=== PATIENT | female | born 1940 | race Caucasian/White ===

== ENCOUNTER → 2021-12-01 | Outpatient (CLI) | payer MEDICARE, OTHER ==
--- NOTE | 2021-12-01 10:46 | Diagnostic Imaging Report ---
PROCEDURE: CT sinuses without contrast TECHNIQUE: Multiple contiguous axial images were obtained through the sinuses without the use of intravenous contrast. Coronal and sagittal reformations were then performed. Auto Exposure Controls were utilized during the CT exam to meet ALARA standards for radiation dose reduction. INDICATION: Chronic sinusitis There is moderate rightward deviation of the nasal septum with large rightwards septal spur. 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 No paranasal sinus air-fluid levels identified and there is no evidence of significant membranous thickening. Visualized mastoid air cells and middle ear cavities are clear. There is mild atherosclerotic calcifications within distal internal carotid and vertebral arteries. Orbits are unremarkable without evidence of retro-orbital inflammation or fluid collection. IMPRESSION: Rightward deviation and spurring of the nasal septum with left conchal bullosa. There is no evidence of sinusitis. Dictated by: Dictated on workstation # [id number]
== END ==
LOC: RAD FS 08:10
PROVIDERS: ATTEND Otolaryngology Otolaryngology/Facial Plastic Surgery
DX: J32.9 Chronic sinusitis, unspecified (principal); J34.89 Other specified disorders of nose and nasal sinuses
CPT/HCPCS: 70486

== ENCOUNTER 2022-09-29 19:47 | Emergency (ER) | payer MEDICARE, OTHER ==
[~2022-09-29] VITALS: Ht 149.8 cm; Wt 61.6 kg
[2022-09-29] MEDS ORDERED: KETOROLAC 15 MG/ML VIAL IVP STA (19:58)
[2022-09-29] MEDS ORDERED: hydrALAZINE (APESOLINE) 20 MG/ML VIAL IV STA (19:58)
--- NOTE | 2022-09-29 20:19 | ED General ---
General Stated Complaint: L ARM,L SIDE OF FACE AND L LEG NUMBNESS/PAIN Source of Information: Patient History of Present Illness Date Seen by Provider: Sep 29, 2022 Time Seen by Provider: 19:49 Initial Comments 82-year-old female presenting with complaints of pain to the left posterior calf since yesterday. Today she was noticing that her left hand and face were tingling. She decided to come to the emergency department due to the combination of the calf pain and her face and hand tingling. On arrival to the ED she states that the tingling to her face and hand are rapidly improving and almost gone. She is still concerned about the pain to the back of her left calf. She denies any injury, fall, heavy lifting or straining. She does have a history of high blood pressure and on arrival to the ED was 208 for her systolic pressure. She denies having a headache, change in vision, nausea, vomiting, weakness in her arms or legs, difficulty swallowing. Timing/Duration: 1 Day Severity: Mild Modifying Factors: worse with Movement (Walking makes the leg hurt more) Associated Systoms: No Chest Pain, No Cough, No Diaphoresis, No Fever/Chills, No Headaches, No Loss of Appetite, No Malaise, No Nausea/Vomiting, No Rash, No Seizure, No Shortness of Air, No Syncope, No Weakness Allergies and Home Medications Allergies Coded Allergies: Macrolide Antibiotics (Verified Allergy, Unknown, 09/29/22) Patient Home Medication List Home Medication List Reviewed: Yes Rivaroxaban (Xarelto) 15 Mg Tablet, 15 MG PO DAILY Prescribed by: ALEX DUMONT on 09/29/229 Review of Systems Review of Systems Constitutional: No chills EENTM: see HPI; No vision loss, No epistaxis, No nose congestion Respiratory: No cough, No short of breath Cardiovascular: No chest pain Gastrointestinal: No nausea, No vomiting Genitourinary: No dysuria Musculoskeletal: muscle pain (left calf since yesterday) Skin: No rash Psychiatric/Neurological: Denies Headache; Tingling (left face and hand) Physical Exam Vital Signs Vital Signs - First Documented 09/29/22 19:53 Temp 36.5 Pulse 96 Resp 19 B/P (MAP) 208/79 (122) Pulse Ox 98 O2 Delivery Room Air Capillary Refill : Height, Weight, BMI Height: '" Weight: lbs. oz. kg; BMI Method: General Appearance: No Apparent Distress, WD/WN Eyes: Bilateral Eye PERRL, Bilateral Eye EOMI HEENT: Normal ENT Inspection, Pharynx Normal, Moist Mucous Membranes Neck: Full Range of Motion, Normal Inspection, Non Tender, Supple Respiratory: Chest Non Tender, Lungs Clear, Normal Breath Sounds, No Accessory Muscle Use, No Respiratory Distress Cardiovascular: Regular Rate, Rhythm, Normal Peripheral Pulses Gastrointestinal: Normal Bowel Sounds, No Pulsatile Mass, Non Tender, Soft Rectal: Deferred Back: No CVA Tenderness Extremity: Normal Capillary Refill, Normal Range of Motion, No Pedal Edema, Calf Tenderness (left side) Neurologic/Psychiatric: Alert, Oriented x3, No Motor/Sensory Deficits, Normal Mood/Affect, animal pathologist II-XII Norm as Tested Skin: Normal Color, Warm/Dry Progress/Results/Core Measures Suspected Sepsis SIRS Temperature: Pulse: Respiratory Rate: Laboratory Tests 09/29/22 19:55: White Blood Count 11.1H Blood Pressure / Mean: Laboratory Tests 09/29/22 19:55: Creatinine 0.68, INR Comment 0.9, Platelet Count 273, Total Bilirubin < 0.2 Results/Orders Lab Results Laboratory Tests Test 09/29/22 19:55 Range/Units White Blood Count 11.1 H 4.3-11.0 10^3/uL Red Blood Count 4.46 3.80-5.11 10^6/uL Hemoglobin 13.3 11.5-16.0 g/dL Hematocrit 38 35-52 % Mean Corpuscular Volume 84 80-99 fL Mean Corpuscular Hemoglobin 30 25-34 pg Mean Corpuscular Hemoglobin Concent 36 32-36 g/dL Red Cell Distribution Width 13.2 10.0-14.5 % Platelet Count 273 130-400 10^3/uL Mean Platelet Volume 10.0 9.0-12.2 fL Immature Granulocyte % (Auto) 0 % Neutrophils (%) (Auto) 45 42-75 % Lymphocytes (%) (Auto) 40 12-44 % Monocytes (%) (Auto) 9 0-12 % Eosinophils (%) (Auto) 5 0-10 % Basophils (%) (Auto) 1 0-10 % Neutrophils # (Auto) 5.0 1.8-7.8 10^3/uL Lymphocytes # (Auto) 4.4 H 1.0-4.0 10^3/uL Monocytes # (Auto) 1.0 0.0-1.0 10^3/uL Eosinophils # (Auto) 0.6 H 0.0-0.3 10^3/uL Basophils # (Auto) 0.1 0.0-0.1 10^3/uL Immature Granulocyte # (Auto) 0.0 0.0-0.1 10^3/uL Prothrombin Time 12.5 12.2-14.7 SEC INR Comment 0.9 0.8-1.4 Activated Partial Thromboplast Time 26 24-35 SEC D-Dimer 0.91 H 0.00-0.49 UG/ML Sodium Level 133 L 135-145 MMOL/L Potassium Level 4.1 3.6-5.0 MMOL/L Chloride Level 95 L 98-107 MMOL/L Carbon Dioxide Level 21 21-32 MMOL/L Anion Gap 17 H 5-14 MMOL/L Blood Urea Nitrogen 22 H 7-18 MG/DL Creatinine 0.68 0.60-1.30 MG/DL Estimat Glomerular Filtration Rate 88 BUN/Creatinine Ratio 32 Glucose Level 220 H 70-105 MG/DL Calcium Level 10.1 8.5-10.1 MG/DL Corrected Calcium 9.9 8.5-10.1 MG/DL Magnesium Level 1.9 1.6-2.4 MG/DL Total Bilirubin < 0.2 0.1-1.0 MG/DL Aspartate Amino Transf (AST/SGOT) < 5 L 5-34 U/L Alanine Aminotransferase (ALT/SGPT) < 5 0-55 U/L Alkaline Phosphatase 113 40-136 U/L Troponin I < 0.30 <0.30 NG/ML Pro-B-Type Natriuretic Peptide < 36.0 <450.0 PG/ML Total Protein 6.8 6.4-8.2 GM/DL Albumin 4.2 3.2-4.5 GM/DL My Orders Orders - ALEX DUMONT MD Cbc With Automated Diff (09/29/22 19:58) Magnesium (09/29/22 19:58) Chest 1 View Ap/Pa Only (09/29/22 19:58) Ekg Tracing (09/29/22 19:58) Comprehensive Metabolic Panel (09/29/22 19:58) Protime With Inr (09/29/22 19:58) Partial Thromboplastin Time (09/29/22 19:58) O2 (09/29/22 19:58) Monitor-Rhythm Ecg Trace Only (09/29/22 19:58) Ed Iv/Invasive Line Start (09/29/22 19:58) Troponin I Fs (09/29/22 19:58) Probnp Fs (09/29/22 19:58) Fibrin Degradation Products (09/29/22 19:58) Ct Head Wo (09/29/22 19:58) Hydralazine Injection (Apresoline Inject (09/29/22 19:58) Ketorolac Injection (Toradol Injection) (09/29/22 19:58) Tibia Fibula 2 View Left (09/29/22 20:30) Rivaroxaban Tablet (Xarelto Tablet) (09/29/22 21:46) Vital Signs/I&O 09/29/22 09/29/22 19:53 22:01 Temp 36.5 Pulse 96 90 Resp 19 18 B/P (MAP) 208/79 (122) 146/82 Pulse Ox 98 99 O2 Delivery Room Air Room Air Capillary Refill : Progress Note #1: Progress Note Potential diagnosis of hypertensive crisis, DVT, anxiety, radiculopathy, electrolyte imbalance, muscle strain. Obtain CT scan of the head without IV contrast to look for signs of acute ischemia, hemorrhage, mass. 1 view chest x-ray to look for signs of acute pathology in her chest to contribute to the left hand and face tingling. X-rays of the left tib-fib to look for acute pathology to cause her calf pain. Establish peripheral IV access and send labs for complete blood count, comprehensive metabolic profile, coagulation factors, D-dimer, magnesium, troponin, proBNP. Hydralazine 10 mg IV for hypertension. Progress Note #2: Progress Note Labs showed white blood cell count was at the upper limit of normal at 11.1. Her comprehensive metabolic panel did not show any acute electrolyte abnormality to account for her pain and symptoms. She had a negative troponin. Her magnesium was normal. Her coagulation factors were not elevated. She did have an elevated D-dimer of 0.9. Advised patient that this elevation in the D-dimer could indicate that she had a DVT causing her left calf pain. Its not 100% guarantee that she would have a DVT. We will start her on a blood thinner tonight so that she would have treatment for a blood clot if it was present and give her an outpatient order sheet to get an ultrasound done tomorrow. Send a prescription for the first 3 weeks of Xarelto to the pharmacy so if she does reynoso ve a blood clot she can at least get started on medication. Advise she would not have to take the blood thinner after tonight if they did not see a blood clot on the ultrasound. Her blood pressure improved even before getting the hydralazine and continue to improve after. Her tingling to her face and hand had resolved as her blood pressure came down. There is no acute abnormality on her CT scan of the head without IV contrast. Her chest x-ray and tib-fib x-ray were also negative. Reassured patient and counseled to get ultrasound to look for DVT. Advised to otherwise she would be started on a blood thinner tonight which will treat if she does have a blood clot. She does not have specific risk factors for blood clot but has been less active recently. ECG Initial ECG Impression Date: Sep 29, 2022 Initial ECG Impression Time: 19:57 Initial ECG Rate: 86 Initial ECG Rhythm: Normal Sinus Initial ECG Comparisson: No Previous ECG Available Comment On my initial interpretation and review her electrocardiogram shows a normal sinus rhythm with a heart rate of 86 bpm. She had no acute ST elevation. IL interval 180 ms. QT interval 374 ms with a QTc interval of 417 ms. She has no prior tracing available for comparison. Diagnostic Imaging Diagonstic Imaging: CT Plain Films/CT/US/NM/MRI: head Comments [facility] [place], [place] NAME: KAITLIN WARD [facility] REC#: [id number] PT STATUS: DEP ER : 1940 PHYSICIAN: ALEX DUMONT MD ADMIT DATE: 09/29/22/ER FS Signed Date of Exam:09/29/22 CT HEAD WO PROCEDURE: CT head without contrast. TECHNIQUE: Multiple contiguous axial images were obtained through the brain without the use of intravenous contrast. Auto Exposure Controls were utilized during the CT exam to meet ALARA standards for radiation dose reduction. INDICATION: Left face and hand tingling with hypertension COMPARISON: None FINDINGS: The ventricles and cortical sulci are diffusely prominent. There is no midline shift or mass effect. No acute intracranial hemorrhage is seen. There is no CT evidence of acute territorial ischemia. There are areas of hypoattenuation in the white matter which are likely from chronic microvascular disease. The calvarium appears intact. Visualized paranasal sinuses are clear. IMPRESSION: 1. No acute intracranial hemorrhage or CT evidence of acute territorial ischemia. 2. Generalized parenchymal volume loss with findings of chronic microvascular disease. Dictated by: Dictated on workstation # [id number] Dict: 09/29/222027 Trans: 09/29/222216 SHAISTA [id number] Interpreted by: DEBBY MURRAY MD Electronically signed by: DEBBY MURRAY MD 09/29/222216 Reviewed: Reviewed by Me Diagonstic Imaging: Xray Plain Films/CT/US/NM/MRI: chest Comments [facility] [place] [place], [place] NAME: WARDKAITLIN [facility] REC#: [id number] PT STATUS: DEP ER : 1940 PHYSICIAN: ALEX DUMONT MD ADMIT DATE: 09/29/22/ER FS Signed Date of Exam:09/29/22 CHEST 1 VIEW AP/PA ONLY HISTORY: Left hand and face tingling, hypertension COMPARISON: None TECHNIQUE: Frontal view of the chest FINDINGS: Lung volumes are normal. No consolidation is seen. There is no pleural effusion or pneumothorax. The cardiac silhouette is normal in size. IMPRESSION: 1. No acute pulmonary abnormality. Dictated by: Dictated on workstation # [id number] Dict: 09/29/222040 Trans: 09/29/222216 SHAISTA [id number] Interpreted by: DEBBY MURRAY MD Electronically signed by: DEBBY MURRAY MD 09/29/222216 Reviewed: Reviewed by Me Diagonstic Imaging: Xray Plain Films/CT/US/NM/MRI: leg Comments [facility] [place] [place] NAME: KAITLIN WARD [facility] REC#: [id number] PT STATUS: DEP ER : 1940 PHYSICIAN: ALEX DUMONT MD ADMIT DATE: 09/29/22/ER FS Signed Date of Exam:09/29/22 TIBIA FIBULA 2 VIEW LEFT HISTORY: Left calf pain TECHNIQUE: 2 views of the left tibia and fibula COMPARISON: None FINDINGS: No acute fracture is seen in the left tibia and fibula. Alignment is normal. Joint spaces are preserved. There is calcific atherosclerosis. No erosions or periosteal reaction is seen. IMPRESSION: 1. No acute osseous abnormality is seen in the left tibia and fibula. Dictated by: Dictated on workstation # [id number] Dict: 09/29/222042 Trans: 09/29/222216 [facility] [id number] Interpreted by: DEBBY MURRAY MD Electronically signed by: DEBBY MURRAY MD 09/29/222216 Reviewed: Reviewed by Me Departure Impression Primary Impression: Pain of left calf Additional Impressions: Elevated d-dimer Elevated blood pressure reading with diagnosis of hypertension Disposition: HOME, SELF-CARE Condition: Stable Departure-Patient Inst. Decision time for Depature: 21:54 Referrals: STACI MONAE DO (PCP/Family) Primary Care Physician Patient Instructions: Deep Vein Thrombosis (Blood Clots in the Legs) (DC), High Blood Pressure ED, Leg Muscle Strain ED Add. Discharge Instructions: You had a test tonight called a D-dimer which was elevated. This may indicate that there is a blood clot causing your calf and leg pain. It is not definite that you have a blood clot and an ultrasound will need to be done. Take your order sheet with you and check with [facility] to see if they could perform the ultrasound on your leg tomorrow. If they are not able to then you could call [facility] to the radiology department to see about having an ultrasound done in [place]. Take the blood thinner once a day until you know the results of the ultrasound to see if there is a blood clot or not. If there is a blood clot in the leg causing the pain then taking the blood thinner daily for up to 6 months or more would be the treatment. Your blood pressure was high tonight which can cause the numbness and tingling. This may have been due to stress and anxiety but if it continues to run high follow-up with your doctor as they may need to adjust your medication or dosage. Scripts Rivaroxaban (Xarelto) 15 Mg Tablet 15 MG PO DAILY for DVT for 21 Days, #21 TAB 0 Refills Prov: ALEX DUMONT MD 09/29/22 ALEX DUMONT MD Sep 29, 2022 20:19
[2022-09-29 20:21] LABS: BASOPHILS # (AUTO) 0.1 10^3/uL (0.0-0.1); BASOPHILS % (AUTO) 1 % (0-10); EOSINOPHILS # (AUTO) 0.6 10^3/uL (0.0-0.3); EOSINOPHILS % (AUTO) 5 % (0-10); HEMATOCRIT 38 % (35-52); HEMOGLOBIN 13.3 g/dL (11.5-16.0); LYMPHOCYTES # (AUTO) 4.4 10^3/uL (1.0-4.0); LYMPHOCYTES % (AUTO) 40 % (12-44); MEAN CORPUSCULAR HEMOGLOBIN 30 pg (25-34); MEAN CORPUSCULAR HGB CONC 36 g/dL (32-36); MEAN CORPUSCULAR VOLUME 84 fL (80-99); MONOCYTES % (AUTO) 9 % (0-12); NEUTROPHILS % (AUTO) 45 % (42-75); PLATELET COUNT 273 10^3/uL (130-400); WHITE BLOOD COUNT 11.1 10^3/uL (4.3-11.0)
--- NOTE | 2022-09-29 20:36 | Diagnostic Imaging Report ---
PROCEDURE: CT head without contrast. TECHNIQUE: Multiple contiguous axial images were obtained through the brain without the use of intravenous contrast. Auto Exposure Controls were utilized during the CT exam to meet ALARA standards for radiation dose reduction. INDICATION: Left face and hand tingling with hypertension COMPARISON: None FINDINGS: The ventricles and cortical sulci are diffusely prominent. There is no midline shift or mass effect. No acute intracranial hemorrhage is seen. There is no CT evidence of acute territorial ischemia. There are areas of hypoattenuation in the white matter which are likely from chronic microvascular disease. The calvarium appears intact. Visualized paranasal sinuses are clear. IMPRESSION: 1. No acute intracranial hemorrhage or CT evidence of acute territorial ischemia. 2. Generalized parenchymal volume loss with findings of chronic microvascular disease. Dictated by: Dictated on workstation # [id number]
[2022-09-29 20:46] LABS: FIBRIN DEGRADATION PRODUCTS 0.91 UG/ML (0.00-0.49); INR 0.9 (0.8-1.4); PROTHROMBIN TIME PATIENT 12.5 SEC (12.2-14.7)
--- NOTE | 2022-09-29 20:46 | Diagnostic Imaging Report ---
HISTORY: Left hand and face tingling, hypertension COMPARISON: None TECHNIQUE: Frontal view of the chest FINDINGS: Lung volumes are normal. No consolidation is seen. There is no pleural effusion or pneumothorax. The cardiac silhouette is normal in size. IMPRESSION: 1. No acute pulmonary abnormality. Dictated by: Dictated on workstation # [id number]
--- NOTE | 2022-09-29 20:47 | Diagnostic Imaging Report ---
HISTORY: Left calf pain TECHNIQUE: 2 views of the left tibia and fibula COMPARISON: None FINDINGS: No acute fracture is seen in the left tibia and fibula. Alignment is normal. Joint spaces are preserved. There is calcific atherosclerosis. No erosions or periosteal reaction is seen. IMPRESSION: 1. No acute osseous abnormality is seen in the left tibia and fibula. Dictated by: Dictated on workstation # [id number]
[2022-09-29 20:48] LABS: ALKALINE PHOSPHATASE 113 U/L (40-136); BILIRUBIN,TOTAL < 0.2 MG/DL (0.1-1.0); BUN/CREATININE RATIO 32; CALCIUM 10.1 MG/DL (8.5-10.1); CARBON DIOXIDE 21 MMOL/L (21-32); CHLORIDE 95 MMOL/L (98-107); CREATININE SERUM 0.68 MG/DL (0.60-1.30); GFR ESTIMATED 88; GLUCOSE 220 MG/DL (70-105); MAGNESIUM 1.9 MG/DL (1.6-2.4); POTASSIUM 4.1 MMOL/L (3.6-5.0); SODIUM 133 MMOL/L (135-145)
[2022-09-29 20:49] LABS: ALBUMIN 4.2 GM/DL (3.2-4.5); TOTAL PROTEIN 6.8 GM/DL (6.4-8.2)
[2022-09-29 21:10] LABS: ALANINE AMINOTRANSFERASE < 5 U/L (0-55)
[2022-09-29] MEDS ORDERED: RIVAROXABAN 15 MG TABLET (XARELTO) PO STA (21:46)
[2022-09-29] MEDS ORDERED: RIVA15TA PO (21:56)
[2022-09-29 22:01] VITALS: BP 146/82
== END 2022-09-29 22:02 | disposition home or self-care (01) ==
LOC: EDUNIT# 19:47 → ER FS 19:49
DX: M79.662 Pain in left lower leg (principal); I10 Essential (primary) hypertension; R79.1 Abnormal coagulation profile
CPT/HCPCS: 36415; 70450; 71045; 73590; 80053; 83735; 83880; 84484; 85025; 85379; 85610; 85730; 93005; 93041; 96374; 96375